=== PATIENT | female | born 1940 | race Caucasian/White ===

== ENCOUNTER 2021-09-25 13:48 | Outpatient (CLI) | payer MEDICARE, SELFPAY ==
--- NOTE | 2021-09-25 | ECG_ITS ---
Measurements Intervals [place] Rate: 64 P: 33 IA: 185 QRS: 1 QRSD: 93 T: 34 QT: 393 QTc: 406 Interpretive Statements SINUS RHYTHM INCOMPLETE RIGHT BUNDLE BRANCH BLOCK BORDERLINE ECG Electronically Signed On 09-25-2021 14:23:49 STRIPPER CUTTER MACHINE by Pablo Fowler D.O.
== END 2021-09-25 13:49 | disposition home or self-care (01) ==
PROVIDERS: PCP Family Medicine; Visit Provider Orthopaedic Surgery
DX: Z01.810 Encounter for preprocedural cardiovascular examination (principal); M17.11 Unilateral primary osteoarthritis, right knee; N28.9 Disorder of kidney and ureter, unspecified; I10 Essential (primary) hypertension; E03.9 Hypothyroidism, unspecified; I45.10 Unspecified right bundle-branch block
CPT/HCPCS: 93005

== ENCOUNTER 2021-10-07 08:17 | Outpatient (CLI) | payer MEDICARE, SELFPAY ==
--- NOTE | ~2021-10-07 | CT_ITS ---
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 Additional sagittal and coronal reconstructions wer e performed. Automated exposure control and iterative reconstruction technique were employed. The dos e-length product was 1742.58 mGy-cm. COMPARISON: None FINDINGS: Bone alignment in the right lower limb is normal. No fracture. Small osseous excrescence with cortica l and medullary continuity at the posterior subtrochanteric right femur consistent with an osteochond aries. Severe tricompartmental osteoarthritis at the right knee with subarticular cystic changes most prominent along the lateral patellar facet and along the weightbearing medial femoral condyle and at the lateral tibial plateau along the shoulder the intercondylar eminence. Moderate-sized left knee chuy int effusion. Loose osteochondral bodies at both the suprapatellar pouch and posterior recess of the lateral compartment. Additional moderate osteoarthritis at the medial naviculocuneiform articulation with additional subarticular cystic changes and mild osteoarthritis at the right hip and multiple christine nts in the right foot. IMPRESSION: 1. Severe tricompartmental osteoarthritis at the right knee with moderate-sized joint effusion. Reviewed, dictated and finalized at location A. SPREADER OPERATOR
== END 2021-10-07 08:18 | disposition home or self-care (01) ==
PROVIDERS: PCP Family Medicine; Visit Provider Orthopaedic Surgery
DX: M17.11 Unilateral primary osteoarthritis, right knee (principal)
CPT/HCPCS: 73700

== ENCOUNTER 2021-11-17 09:40 | Outpatient (CLI) | payer MEDICARE, SELFPAY ==
[2021-11-17 11:30] LABS: Albumin Level 4.2 g/dL (3.5-5.1); Estimated Glomerular Filt Rate 48; Glucose 102 mg/dL (65-110)
[2021-11-17 11:34] LABS: Partial Thromboplastin Time 26.3 SECONDS (22.3-36.8)
[2021-11-17 11:41] LABS: Urine Cotinine NEGATIVE
[2021-11-17 11:57] LABS: Hemoglobin A1C 5.5 % (<5.7)
[2021-11-17 12:22] LABS: Basophils Absolute Auto 0.1 K/mm3 (0.0-0.1); Basophils Percent Auto 1.2 % (0.2-1.2); Eosinophils Absolute Auto 0.1 K/mm3 (0-0.3); Eosinophils Percent Auto 1.2 % (0-4.4); Hematocrit 38.7 % (37.0-47.0); Hemoglobin 12.8 g/dL (12.0-15.0); Immature Granulocyte Absolute 0.02 K/mm3 (0.00-0.031); Immature Granulocyte Percent A 0.4 % (0-0.5); Lymphocytes Absolute Auto 1.06 K/mm3 (0.9-3.2); Lymphocytes Percent Auto 18.9 % (18.3-44.2); Mean Corpuscular HGB Conc 33.1 g/dl (32-36); Mean Corpuscular Hemoglobin 30.7 pg (26-34); Mean Corpuscular Volume 92.8 fl (80-100); Mean Platelet Volume 9.5 fl (7.4-10.4); Monocytes Absolute Auto 0.6 K/mm3 (0.1-0.6); Monocytes Percent Auto 11.2 % (2.6-8.5); Neutrophils Absolute Auto 3.8 K/mm3 (1.3-6.7); Neutrophils Percent Auto 67.1 % (45.5-73.1); Platelet Count Result 205 k/mm3 (150-375); Red Blood Count 4.17 M/mm3 (4.2-5.4); Red Cell Distribution Width 13.1 % (11.5-14.5); White Blood Count 5.6 K/mm3 (4.5-10.0)
== END 2021-11-17 09:41 | disposition home or self-care (01) ==
LOC: ANHSURGERY 09:46
PROVIDERS: Anesthesiology; PCP Family Medicine; Visit Provider Orthopaedic Surgery
DX: M17.11 Unilateral primary osteoarthritis, right knee (principal); N18.9 Chronic kidney disease, unspecified; Z01.818 Encounter for other preprocedural examination
CPT/HCPCS: 36415; 80307; 82040; 82565; 82947; 83036; 85025; 85610; 85730; 87081

== ENCOUNTER 2021-12-16 00:15 | Day surgery (SDC) | payer MEDICARE, SELFPAY ==
[2021-11-17 09:59] VITALS: BMI 25.7
--- NOTE | 2021-11-17 10:27 | PC.NURSE ---
Addendum entered by Radha Redman RN 11/17/21 10:36: ALSO TAKE MORNING OF SURGERY PAULOTHYSARAH Original Note: Report to the Outpatient Waiting Room, entrance under the green pavilion located off [facility], at time _0900 on date __12/16/21 . OR Time: __1100 . - You and your visitor will be asked a series of questions to screen for COVID 19 for your protection. - A mask is required within the hospital. Preoperative COVID Testing Requirements: No COVID Test needed if: (proof is required; if not received patient will have Rapid Test prior to entry) - Patient has received COVID Vaccine at least 14 days prior to procedure date or - Patient has positive COVID test result within last 90 days of surgery date. COVID Test needed if above criteria is not met If not COVID vaccinated a COVID test must be conducted within 72 hours of surgery and patient is asked to isolate self from time of testing until procedure. You will go to the [facility] for your COVID testing. The [facility] site is located at the corner of [address] [facility]. You will only be called if COVID results are positive and your surgeon may reschedule your elective surgery date. Patients may have clear liquids (water, carbonated beverages, clear teas, apple juice) until 3 hours prior to surgery with a maximum of 20 ounces. - No food from midnight until time of surgery - Infants may have breast milk until 4 hours before surgery, infant formula 6 hours prior to surgery. - Children will be allowed to drink immediately following surgery. If applicable, please bring a bottle or sippy cup to assist with drinking. Juice, water, soda, and popsicles are readily available. For infants on formula, please bring formula the day of surgery. Pacifiers are allowed. Take the following medications with a SIP of water the morning of surgery: ___CARVEDILOL,LEVOTHYROXINE Medications to discontinue per physician __ALL VITAMINS AND SUPPLEMENTS 3 DAYS PRE OP 3 DAYS PRE OP Date to take last dose___12/12/21 Please no make-up, nail gabonese, hairspray, perfume, deodorant, or body powder the day of surgery. No jewelry (including any body piercings) or valuables the day of surgery, leave them at home. Please take a shower or bath the night before, or the morning of, surgery with an antibacterial soap. Wear comfortable, loose fitting clothing. Children are encouraged to wear pajamas. - Jewelry must be removed prior to entering the operating room. Rings and piercings that are not removed may be cut off. - The hospital will not accept responsibility for valuables. - Please leave all valuables, including medications, at home the day of surgery. If you are going home after surgery, a licensed cdl flatbed truck driver must drive you home. TOTAL JOINT CLASS 12/03/21 AT 10 AM - NO public transportation without another adult. - We recommend that an adult stay with you for 24 hours following discharge. - We also recommend that you do not drive, make important decision, drink alcoholic beverages, or take any drugs that were not prescribed by your health care provider for at least 24 hours after your discharge time. For Pediatric surgeries, we recommend two adults accompany the child home (only one inside the building at this time). One visitor will be allowed to accompany the patient into the hospital. Patients visitor will be instructed to remain with patient at all times or leave the building. We will allow the visitor to come back to the postoperative area when patient is ready. Follow any additional instructions given to you from your surgeon. VERBAL AND WRITTEN instructions given to __PATIENT and asked if any additional questions and then verbalized understanding. Patient advised to call surgeon office or pre surgery nurse liaison [phone] if any additional qu
[2021-11-17 10:52] VITALS: BP 163/65; PULSE 66; RESP 18; TEMP 37.4; O2SAT 99
[2021-12-16] VITALS (12 sets, daily range): BP systolic 116–181; BP diastolic 44–66; PULSE 56–98; RESP 12–20; TEMP 35.6–36.4; O2SAT 92–100; BMI 25.8
--- NOTE | ~2021-12-16 | XR_ITS ---
EXAMINATION: XR knee RT 2V DATE: 12/16/2021 12:35 INDICATION: Total right knee arthroplasty. Postop. TECHNIQUE: 2 views of right knee were obtained. COMPARISON: Right knee radiographs 08/06/2021 FINDINGS: There is a total right knee arthroplasty with patellar resurfacing in near-anatomic alignme nt. No fracture. There is gas in the knee joint and soft tissues, consistent with recent surgery. IMPRESSION: 1. Total right knee arthroplasty in near-anatomic alignment. Reviewed, dictated and finalized at location B.
--- NOTE | 2021-12-16 07:15 | WPDANESEPPF ---
Anes - Initial Pre Proc Eval Procedure: Operation Date: 12/16/21 11:00 Proposed Procedures p Right Custom Total Knee Arthroplasty - Prabhjot Hsieh MD Date/Time: 12/16/21 07:15 Surgeon: Prabhjot Hsieh MD Pre Op Diagnosis: primary OA right knee Patient Data Age: 81 Gender: F Height: 1.6 m Weight: 66 kg Last Vital Signs Temp 37.4 C 11/17/21 10:52 Pulse 66 11/17/21 10:52 Resp 18 11/17/21 10:52 BP 163/65 H 11/17/21 10:52 Pulse Ox 99 11/17/21 10:52 Allergies Allergy/AdvReac Type Severity Reaction Status Date / Time amlodipine AdvReac Unknown Abdominal Verified 12/16/21 09:08 Pain Home Medications Medication Instructions Recorded Confirmed Type ascorbic acid (vitamin C) 1,000 mg 1 g PO DAILY 08/06/21 12/16/21 History tablet carvedilol 25 mg tablet 25 mg PO Q12H 08/06/21 12/16/21 History ferrous sulfate 325 mg (65 mg 325 mg PO DAILY 08/06/21 12/16/21 History iron) tablet levothyroxine 112 mcg tablet 112 mcg PO DAILY 08/06/21 12/16/21 History liothyronine 5 mcg tablet 5 mcg PO DAILY 08/06/21 12/16/21 History losartan 100 mg tablet 100 mg PO HS 08/06/21 12/16/21 History omega-3 fatty acids 500 mg capsule 500 mg PO DAILY 08/06/21 12/16/21 History pravastatin 20 mg tablet 10 mg PO DAILY 08/06/21 12/16/21 History vitamins A,C,C-xuiw-ouwpzk 14,320 1 cap PO BID 08/06/21 12/16/21 History unit-226 mg-200 unit capsule alprazolam 0.25 mg tablet 0.25 mg PO PRN PRN tablet 09/16/21 12/16/21 History tramadol 50 mg tablet 50 mg PO Q12H PRN #30 tablet MDD 2 11/03/21 12/16/21 Rx magnesium oxide 250 mg PO BID 11/17/21 12/16/21 History Patient hx anesthesia problems: none Family hx anesthesia problems: none Results Review: All pre-operative results and documents have been reviewed as part of the pre-operative evaluation. [facility] Past Medical History Medical History History of stress test Hyperlipidemia Hypertension Hypothyroidism Kidney disease Vocal cord cyst (~05/2013) Surgical History Surgical History H/O: hysterectomy (~01/1975) History of left knee replacement (~03/2008) Family History Family History Father Parkinson disease Mother Osteoporosis Arthritis Hypertension Social History Social History Smoking status: Never smoker Additional smoking assessment comments: DENIES ANY FORM OF TOBACCO USE Alcohol intake: never Substance use: never Living arrangements: with family Spiritual care concerns: No Anes - Eval Final PreProcedure Day of Procedure 12/16/21 07:15 Patient weight: overweight Heart: regular rate and rhythm Lungs: clear to auscultation and normal air movement Airway: Mallampati scale class II Neurological: alert and oriented Last oral intake: >/= 8 hours ASA classification: III Emergent: no Anesthetic plan: proceed Anesthesia type and monitoring: general LMA and standard monitoring Results Review: All pre-operative results and documents have been reviewed as part of the pre-operative evaluation. Informed Consent: The patient's anesthetic plan and its attendant risks and benefits were discussed with the patient/family/POA. Questions were solicited and answers provided to the satisfaction of the patient/family/POA.
--- NOTE | 2021-12-16 07:23 | WPDHPUPDATE1 ---
History and Physical Update Update Date/Time: 12/16/21 07:23 History and Physical has been reviewed, including an updated exam of the patient. There are NO changes in the patient's condition. Risks, benefits, and alternatives have been discussed and questions answered. Patient agrees to proceed with procedure.
--- NOTE | 2021-12-16 08:06 | WPDANESPNB ---
Anes - Peripheral Nerve Block Date/Time: 12/16/21 08:06 I have discussed with the patient/family/POA the placement of a peripheral nerve block for post-operative pain management, including associated risks, benefits, complications, and side effects. Alternative methods of post-operative analgesia were detailed. Questions were solicited and answers provided to the satisfaction of the patient/family/POA. Time-Out: A pre-procedural Time-Out was completed immediately before starting the procedure and confirmed: Patient Identification, Site, Procedure, Patient Position and the Availability of Requisite Equipment. Clinical Indications: Acute post-operative pain management requested by the operative surgeon. Nerve Block Insertion Note Anes-nerve block: adductor canal right Patient position: supine Skin prep: chlorhexidine Needle: 22 gauge, stimulating, insulated echogenic needle. Needle length: 80 mm Technique: ultrasound Injectate: bupivacaine 0.5% with epi 5 mcg/ml (30cc - no epi) Observations: tolerated well Complications: none Procedure start time:: 1000 Procedure end time:: 1004
[2021-12-16] MEDS: ACETAMINOPHEN 500 MG TABLET 1000 MG PO (09:24)
[2021-12-16] MEDS: LACTATED RINGERS 1,000 ML 30 ML IV CONT ×2 (09:39→12:24)
[2021-12-16] MEDS: TRANEXAMIC ACID 1,000MG/ISO100 1,000 MG/100 ML BAG 200 MG IVPB (09:42)
--- NOTE | 2021-12-16 09:53 | SUR.PREOP ---
0950; OFFERED FOR PT TO GO TO RESTROOM AGAIN. PT REFUSED
[2021-12-16] MEDS: ceFAZolin 2 GM/D5W 50 ML 2 GM/50 ML BAG IVPB ×2 (10:07→17:04)
--- NOTE | 2021-12-16 16:17 | W.PM.PROC2 ---
Procedure Note - Detailed Date of Procedure 12/16/21 Pre-op Diagnosis primary OA right knee Post-op Diagnosis Same Procedure Performed Total knee arthroplasty, right. Surgeon Prabhjot Hsieh MD Occasional Babysitter Leana Carr PA-C Anesthesia General and Regional (Subsartorial block.) Findings Good bone quality. No releases required. Description of Procedure Preoperative antibiotics were given. The limb was prepped and draped in the usual sterile fashion with a well-padded tourniquet high on the thigh. The limb was exsanguinated and the tourniquet inflated to 300 mmHg. A longitudinal incision was created just medial to the patella. A trivector approach to the knee was performed. Arthrotomy was taken down through the joint capsule. No significant releases were initially taken. The femur was exposed and the F1 jig was applied. The coring tool was used to remove the cartilage for the F2 jig to sit flush with the bone. The jig was pinned and the distal cut carefully taken. Caliper measurements confirmed appropriate bony resections according to the preoperative templated plan. The F4 cutting jig for the femur was applied, at the standard rotation. The AP and anterior chamfer cuts were taken. The F5 jig was applied and the posterior chamfer cuts were taken. The tibia was prepared using the T1 jig, after removing cartilage for the jig contact points. Proper alignment was checked with the alignment gareth. The tibia was cut using the T1u guide. Gap balancing was performed. Gap measurements were taken and the knee was trialed. Excellent alignment and soft tissue balancing was confirmed. The posterior cruciate ligament was recessed along the proximal tibia. The patella was cut for resurfacing. Three lug holes were drilled. Meniscal remnants were removed. The trial components were assembled. Excellent range of motion and proper soft tissue balancing were confirmed throughout the full range of motion. Patellar tracking was excellent. The knee was copiously irrigated periodically throughout the procedure. The real implants were cemented into position. Excess cement was carefully removed. The wound was closed in layers with interrupted #1 Vicryl suture, 2-0 strata fix suture, 0 strata fix suture, 2-0 strata fix suture. Steri-Strips placed on the skin with the knee flexed. Sterile bulky dressing applied. The patient was brought to the recovery room in stable condition. There were no complications. Physician credentialing assistant, Leana Carr PA-C, required for surgery; including patient positioning, draping, tissue retraction, maintaining instrument position, cement removal, wound closure, and dressing placement. Implants Conformis Custom total knee arthroplasty. Cemented. Cruciate retaining. 6B insert. 29 mm round patella. Estimated Blood Loss -200.0 Urine Output 700 Drains No Pathology None sent Complications No immediate complications Condition Stable Disposition PACU [facility] Billing Surgery - Charge Forward: Surgery Billing
[2021-12-16] MEDS: ASPIRIN 81 MG ENTERIC TABLET PO (17:05)
[2021-12-16] MEDS: carvediloL 25 MG TABLET PO (21:33)
[2021-12-16] MEDS: FAMOTIDINE 20 MG TABLET PO (21:33)
[2021-12-16] MEDS: LOSARTAN POTASSIUM 100 MG TABLET PO (21:33)
[2021-12-17] MEDS: ceFAZolin 2 GM/D5W 50 ML 2 GM/50 ML BAG IVPB ×2 (01:12→09:28)
[2021-12-17 03:29] VITALS: BP 155/56; PULSE 65; RESP 18; TEMP 36.1; O2SAT 97
[2021-12-17] MEDS: LEVOTHYROXINE SODIUM 112 MCG TABLET PO (05:45)
[2021-12-17] MEDS: LIOTHYRONINE SODIUM 5 MCG TABLET PO (05:45)
[2021-12-17 08:45] VITALS: PULSE 67
[2021-12-17] MEDS: ASPIRIN 81 MG ENTERIC TABLET PO (08:45)
[2021-12-17] MEDS: carvediloL 25 MG TABLET PO (08:45)
[2021-12-17] MEDS: predniSONE 5 MG TABLET PO (08:45)
[2021-12-17] MEDS: FAMOTIDINE 20 MG TABLET PO (08:46)
[2021-12-17] MEDS: FERROUS SULFATE 324 MG TABLET PO (08:46)
[2021-12-17 09:10] VITALS: BP 138/50; PULSE 67; RESP 17; TEMP 36.1; O2SAT 100
[2021-12-17] MEDS: oxyCODONE HCL (*CRX) 5 MG TAB IR PO (09:34)
--- NOTE | 2021-12-17 11:30 | PCCCNOTE ---
On 12/17/21, the student, [Sisi Meng ], provided care and completed [facility] documentation on this patient. I have reviewed the student's documentation and agree with the findings.
--- NOTE | 2021-12-17 12:30 | P.DS_ITS ---
DS: Summary Time Spent with Patient Time attestation: Total time spent providing and/or coordinating discharge ser vices: Discharge Plan Discharge Patient Disposition: Home, Self-Care Discharge Instructions: See green instruction sheets Patient Instructions: Pain Management (DC), Knee Replacement (DC) Follow-up/Referrals: Leana Carr PA [Physician Director Sales And Marketing] - Discharge Medications: New aspirin 81 mg tablet,delayed release (DR/EC) 81 mg PO BID 14 Days Qty: 28 RF: 0 meloxicam 15 mg tablet 15 mg PO DAILY Qty: 30 RF: 0 prednisone 5 mg tablet 5 mg PO DAILY 21 Days Qty: 21 RF: 0 oxycodone-acetaminophen 5-325 mg tablet 1 - 2 tablet PO Q4-6H MDD 6 PRN (Reason: pain) Qty: 30 RF: 0 Continued ascorbic acid (vitamin C) 1,000 mg tablet 1 g PO DAILY RF: 0 carvedilol 25 mg tablet 25 mg PO Q12H RF: 0 ferrous sulfate 325 mg (65 mg iron) tablet 325 mg PO DAILY RF: 0 liothyronine 5 mcg tablet 5 mcg PO DAILY RF: 0 losartan 100 mg tablet 100 mg PO HS RF: 0 omega-3 fatty acids 500 mg capsule 500 mg PO DAILY RF: 0 pravastatin 20 mg tablet 10 mg PO DAILY RF: 0 PreserVision AREDS 14,320-226-200 ibff-ab-mzqz capsule 1 cap PO BID RF: 0 levothyroxine [Synthroid] 112 mcg tablet 112 mcg PO DAILY RF: 0 alprazolam 0.25 mg tablet 0.25 mg PO PRN PRN (Reason: sleep) RF: 0 magnesium oxide 250 mg magnesium Tablet 250 mg PO BID RF: 0 tramadol 50 mg tablet 50 mg PO Q12H MDD 2 PRN (Reason: pain) Qty: 30 RF: 0
--- NOTE | 2021-12-17 12:32 | WPDANESPN ---
Anes - Prog Note Post-Op Date/Time: 12/17/21 12:32 Cardiovascular status: normal Respiratory status: normal Airway patency: baseline Mental status: baseline Post-Op hydration status: normal Vital Signs: Last Vital Signs Temp 97.0 F L 12/17/21 09:10 Pulse 67 12/17/21 09:10 Resp 17 12/17/21 09:10 BP 138/50 L 12/17/21 09:10 Pulse Ox 100 12/17/21 09:10 Pain Score (VAS): 08/25 I/O: Intake & Output 12/16/21 12/17/21 12/17/21 23:59 07:59 15:59 Intake Total 390 540 290 Output Total 700 Balance -310 540 290 Post-procedural complaints: none Patient Feedback: Patient satisfied with anesthetic care.
== END 2021-12-17 13:29 | disposition home or self-care (01) ==
LOC: ANHSURGERY 08:46 → ANH2MED 14:15
PROVIDERS: PCP Family Medicine; Visit Provider Orthopaedic Surgery
PROC: (CPT 27447; principal; 2021-12-16 11:00)
DX: M17.11 Unilateral primary osteoarthritis, right knee (principal); E78.5 Hyperlipidemia, unspecified; E03.9 Hypothyroidism, unspecified; I10 Essential (primary) hypertension
CPT/HCPCS: 27447; 36415; 73560; 80307; 82040; 82565; 82947; 83036; 85025; 85610; 85730; 86850; 86900; 86901; 87081; 97110; 97116; 97161; 97165; 97530; 97535; A9270; C1713; C1776; J0131; J0171; J0690; J1100; J1885; J2270; J2405; J2704; J2795; J3010; J7120; J7512